=== PATIENT | female | born 1950 | race Caucasian/White ===

== ENCOUNTER 2017-01-03 21:38 | Emergency (ER) | payer MEDICARE, OTHER ==
--- NOTE | ~2017-01-03 | CT71 ---
[facility] A Service of [facility] RADIOLOGY TEXT RESULTS PATIENT: HAKEEM BRYANT LOCATION: [facility] : 52 UNIT #: [id number] AGE: [address]: Amparo Pan MD SEX: F ORDER DR: [id number] [facility] [address] [place] [address] [facility]. [place], [place] [address] [id number] E MR#: [id number] Acc #: [id number] NAME: HAKEEM BRYANT : 1950 SEX: F STUDY DATE/TIME: 01/03/2017 22:12 UNIT: [facility] ROOM: STUDY DESCRIPTION: CT Head Wo Contrast Attending Physician: Amparo Pan M.D. Ordering Physician: Amparo Pan M.D. Primary Care Physician: Primary Care Physician No MEDICAL IMAGING REPORT This report is preliminary unless electronic signature is present EXAM CT scan of the head without contrast INDICATIONS Nonverbal patient with bleeding right eye for 1 day with edema in eye region. Evaluate for head injury. Comparison is 07/26/2008. FINDINGS This CT exam was performed with one or more of the following radiation dose reduction techniques: Automatic exposure control, adjustment of mA and/or kV according to patient size, and iterative reconstruction. Unenhanced images were obtained through the brain. 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 There is marked generalized atrophy. There are no masses or extraaxial fluid collections or hemorrhage. The appearance of the skull, which is very mottled, is unchanged from 2007. 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 No acute abnormalities. Dictated by... Dedrick Saleh M.D. THIS IS AN ELECTRONICALLY VERIFIED REPORT Dedrick Saleh M.D. at 01/04/2017 1:58 AM FEL/nemo TD: 01/03/2017 23:49 JOB #: [id number] [facility] A Service of [facility] RADIOLOGY TEXT RESULTS PATIENT: HAKE[facility] BRYANT [id number] 52 UNIT #: [id number] AGE: [address]: Amparo Pan MD SEX: F ORDER DR: MEDICAL IMAGING REPORT Page 1 of 1 COPY
--- NOTE | ~2017-01-03 | CT101 ---
[facility] A Service [facility] RADIOLOGY TEXT RESULTS PATIENT: HAKEEM BRYANT LOCATION: [facility] : 52 UNIT #: [id number] AGE: [address]: Amparo Pan MD SEX: F ORDER DR: [id number] [place] [address] [facility]. [place], [place] [address] [id number] E MR#: [id number] Acc #: [id number] NAME: HAKEEM BRYANT : 1950 SEX: F STUDY DATE/TIME: 01/03/2017 22:14 UNIT: [facility] ROOM: STUDY DESCRIPTION: CT Maxillofacial Area Wo Cont Attending Physician: Amparo Pan M.D. Ordering Physician: Amparo Pan M.D. MEDICAL IMAGING REPORT This report is preliminary unless electronic signature is present EXAM CT scan of the facial bones without contrast HISTORY Patient with bleeding right eye and swelling right eye region. TECHNIQUE Axial 2 mm images were obtained through the facial bones and coronal reconstructions were generated. This CT exam was performed with one or more of the following radiation dose reduction techniques: automatic exposure control, adjustment of mA and/or kV according to patient size, and iterative reconstruction. FINDINGS No fracture is visible. There is a craniotomy site in the right frontal region and the skull has a very mottled appearance, which is unchanged from 2007. Soft tissues are normal. IMPRESSION No evidence of acute injury. Dictated by... Dedrick Saleh M.D. THIS IS AN ELECTRONICALLY VERIFIED REPORT Dedrick Saleh M.D. at 01/04/2017 1:59 AM FEL/pcl TD: 01/04/2017 00:00 [facility] A Service of [facility] RADIOLOGY TEXT RESULTS PATIENT: HAKEEM BRYANT LOCATION: [facility] : 52 UNIT #: [id number] AGE: [address]: Amparo Pan MD SEX: F ORDER DR: EDU #: [id number] MEDICAL IMAGING REPORT Page 1 of 1 COPY
[~2017-01-03 21:38] MED LIST: ACETAMINOPHEN PO; ALAVERT10 MG GT; ALLERGY RELIEF10 M1 PEG; ASPIRIN325 M1 PEG; CALAZIME P113 GM OIN EXT; CENTAMIN240 ML GT; CENTAMIN240 ML PEG; CHLORHEX GLU; CLARITIN10 MG PO; COUMADIN PO; COUMADIN2.5 MG PEG; COUMADIN5 MG PEG; FAMOTIDINE10 MG GT; FAMOTIDINE20 MG PEG; GENTLE LAXATIVE10 MG RC; GLUCERNA237 ML PEG; GLYCOLAX14 EA GT; GRANULEX SPR113.4 GM TOP; HUMALOG100 U/ML SUBQ; HYDROCODONE AP GT; HYDROCODONE-APA1 T54 PEG; LEVOTHROID50 MCG PO; METOPROLOL TAR25 MG PEG; MILK OF MAGNESIA PEG; MILK OF MAGNESIA PO; MIRALAX17 GM PEG; NABUMETONE PO; NASONEX17 GM; NOVOLIN R100 U/ML; NYSTATIN1 EACH MC; PLAVIX PO; REFRESH EYE DRO50 EA OP; REFRESH15 ML OU; SENNA LAXATIVE8.6 M1 PEG; SENNA8.6 M1 GT; SIMVASTATIN20 MG PEG; SYNTHROID PO; URISPAS100 M1 PO
== END 2017-01-04 00:30 | disposition home or self-care (01) ==
LOC: CED 21:38
DX: S05.01XA Injury of conjunctiva and corneal abrasion without foreign body, right eye, initial encounter (principal); H10.33 Unspecified acute conjunctivitis, bilateral; E78.5 Hyperlipidemia, unspecified; E11.9 Type 2 diabetes mellitus without complications; E03.9 Hypothyroidism, unspecified; Z91.040 Latex allergy status; Z88.8 Allergy status to other drugs, medicaments and biological substances; Z79.82 Long term (current) use of aspirin; Z79.899 Other long term (current) drug therapy; X58.XXXA Exposure to other specified factors, initial encounter
CPT/HCPCS: 70450; 70486; 99284